=== PATIENT | female | born 1975 | race Caucasian/White ===

== ENCOUNTER → 2024-01-01 12:41 | Outpatient (REF) | payer OTHER, SELFPAY | LOC: HWWDC 12:41 | PROVIDERS: ATTENDING PHYSICIAN Obstetrics & Gynecology; FAMILY PHYSICIAN Internal Medicine | DX: Z12.31 Encounter for screening mammogram for malignant neoplasm of breast (principal) | CPT/HCPCS: 77063; 77067 ==

== ENCOUNTER → 2024-01-08 09:21 | Outpatient (REF) | payer OTHER, SELFPAY | LOC: WDC 09:21 | PROVIDERS: ATTENDING PHYSICIAN Obstetrics & Gynecology; FAMILY PHYSICIAN Internal Medicine | DX: R92.8 Other abnormal and inconclusive findings on diagnostic imaging of breast (principal) | CPT/HCPCS: 76642 ==

== ENCOUNTER → 2024-08-01 10:06 | Outpatient (REF) | payer OTHER, SELFPAY | LOC: RAD 10:06 | PROVIDERS: ATTENDING PHYSICIAN Hospitalist | DX: R59.0 Localized enlarged lymph nodes (principal) | CPT/HCPCS: 71046 ==

== ENCOUNTER 2025-01-20 06:39 | Day surgery (SDC) | payer OTHER, SELFPAY ==
[2025-01-20] VITALS (10 sets, daily range): BP systolic 94–114; BP diastolic 44–69; BMI 21.2
[2025-01-20] MEDS: NORMOSOL-R/PLASMALYTE-A 1000 IV (08:10)
== END 2025-01-20 13:06 | disposition home or self-care (01) ==
LOC: SDS 06:39
PROVIDERS: ATTENDING PHYSICIAN Otolaryngology
DX: H80.92 Unspecified otosclerosis, left ear (principal); H91.92 Unspecified hearing loss, left ear
CPT/HCPCS: 69660; 88305; 88311; L8613

== ENCOUNTER → 2025-07-16 10:43 | Outpatient (REF) | payer OTHER, SELFPAY | LOC: RAD 10:43 | PROVIDERS: ATTENDING PHYSICIAN Hospitalist | DX: M25.562 Pain in left knee (principal) | CPT/HCPCS: 73560 ==

== ENCOUNTER 2025-09-02 12:04 | Outpatient (RCR) | payer OTHER, SELFPAY | END 2025-09-02 23:59 | disposition home or self-care (01) | LOC: RPT 12:04 | PROVIDERS: ATTENDING PHYSICIAN Hospitalist | DX: M25.562 Pain in left knee (principal); Z73.6 Limitation of activities due to disability; M62.81 Muscle weakness (generalized); M25.662 Stiffness of left knee, not elsewhere classified | CPT/HCPCS: 97110; 97112; 97140; 97162; 97530 ==